=== PATIENT | male | born 1960 | race Caucasian/White ===

== ENCOUNTER 2020-01-06 14:23 | Emergency (ER) | payer MEDICAID ==
[~2020-01-06] VITALS: Ht 165.1 cm; Wt 63.6 kg
--- NOTE | 2020-01-06 14:50 | NUR ---
PT A&OX3. ROOMMATE AT BS, STATES PT IS SLIGHTLY ALTERED, SLOW TO RESPOND COMPARED TO BASELINE. PT FELL TODAY WHILE THEY WERE OUT AT A [employer] (ROOMMATE DIDN'T WITNESS FALL). ROOMMATE STATES PT FELL A FEW DAYS AGO WELL, WITH NO OBVIOUS INJURIES EXCEPT POSSIBLE CONCUSSION, BUT PT REFUSED TO BE TAKEN TO ED AFTER THAT FALL. PT IS ON DEPAKOTE FOR SEIZURE HX. IS NOT CURRENTLY SEEING A NEUROLOGIST. IS CHRONIC ALCOHOLIC PER ROOMMATE. PT ABLE TO STAND AT BS. ERP WAS IN TO SEE PT.
--- NOTE | 2020-01-06 15:01 | NUR ---
PT TO CT VIA [facility].
[2020-01-06] MEDS ORDERED: DIVA500T2 PO (15:09)
--- NOTE | 2020-01-06 15:30 | NUR ---
HEAD WOUND IRRIGATED WITH 1000ML STERILE NS. PT TOLERATED WELL. ROOMMATE REMAINS AT BS.
[2020-01-06] MEDS ORDERED: PROMETHAZINE 25 MG/ML, 1ML ONE (15:52)
--- NOTE | 2020-01-06 15:54 | NUR ---
R HEAD LACERATION STAPLED BY ER PA, PT TOLERATED WELL. PT VOMITED GREEN FLUID. ASSISTED WITH HYGIENE, LINENS CHANGED. ERP NOTIFIED.
[2020-01-06] MEDS ORDERED: NEOSPORIN OINT. PKT 1 PACKET ONE (16:26)
[2020-01-06] MEDS ORDERED: PROMETHAZINE 25 MG/ML, 1ML IM ONE (16:30)
--- NOTE | 2020-01-06 16:30 | NUR ---
PT REFUSED PHENERGAN FOR N/V. NO SYMPTOMS AT THIS TIME.
--- NOTE | 2020-01-06 16:30 | NUR ---
R HEAD WOUND DRESSED WITH ABX OINTMENT, ADAPTIC, STERILE GAUZE, KERLIX WRAP. INSTRUCTED PT & FRIEND ON WOUND CARE INSTRUCTIONS.
[2020-01-06 17:36] VITALS: BP 113/75
--- NOTE | 2020-01-06 17:39 | NUR ---
D/C INSTRUCTIONS & F/U APPT RV'WD WITH PT AND FRIEND/ROOMMATE. ROOMMATE STATES HE AND PT'S SISTER CAN WATCH OVER PT FOR NEXT 24 HOURS. INSTRUCTED ON HEAD INJURY PRECAUTIONS AND FOR PT TO RETURN TO ED FOR ANY WORSENING SYMPTOMS. PT AMBULATED OUT OF ED WITH ROOMMATE WITHOUT DIFFICULTY.
== END 2020-01-06 17:39 | disposition home or self-care (01) ==
LOC: ED 16:28
DX: S01.01XA Laceration without foreign body of scalp, initial encounter (principal); S09.90XA Unspecified injury of head, initial encounter; M54.2 Cervicalgia; Z72.9 Problem related to lifestyle, unspecified; F10.120 Alcohol abuse with intoxication, uncomplicated; W01.0XXA Fall on same level from slipping, tripping and stumbling without subsequent striking against object, initial encounter; Y93.89 Activity, other specified; Y92.410 Unspecified street and highway as the place of occurrence of the external cause; Y99.8 Other external cause status; Y90.9 Presence of alcohol in blood, level not specified
CPT/HCPCS: 12031; 70450; 72125; 99285